=== PATIENT | female | born 1985 | race Caucasian/White ===

== ENCOUNTER 2018-10-18 10:04 | Day surgery (SDC) | payer OTHER ==
[~2018-10-18] VITALS: Ht 160 cm; Wt 45.6 kg
[~2018-10-18 10:04] MED LIST: ADVOCARE; BCP'S; Cipro500 MG PO; IBUP400 PO; IRON150C PO; JINTELI 1 MG-51 EACH PO; MULVITMINE PO; ONDA4ODT MM; PARO20 PO; PARO30 PO; PROM25 PO; THERA1 EACH PO; [UNRECOGNIZED DRUG - REMARK]
--- NOTE | 2018-10-18 10:28 | NUR ---
History, Chart, Medications and Allergies reviewed before start of procedure. Patient confirms NPO status and agrees with scheduled surgery.
--- NOTE | 2018-10-18 13:44 | NUR ---
NO BLOOD ON PIEDAD PAD. PT 3 INCISIONS REMAINED INTACT. DAVON PO, GAVE 2 PAIN MEDS. ALL BELONGIGNS RETURNED. Discharge instructions reviewed with patient. Patient verbalizes understanding. Copy given to patient to take home. Patient States Post-Procedure ride home BY MOTHER. has been arranged. Discharged via wheelchair to private car for ride home.
--- NOTE | 2018-10-19 13:14 | NUR ---
10/19/18 1314 Tammy Robledo VERIFICATIONS: EDIT CHART.
== END 2018-10-18 22:44 | disposition home or self-care (01) ==
LOC: ORSCMMR 10:04 → ORD 12:00 → ORSCMMR 22:44
PROVIDERS: Obstetrics & Gynecology
PROC: 0UT74ZZ Resection of Bilateral Fallopian Tubes, Percutaneous Endoscopic Approach (ICD-10-PCS; principal; 2018-10-18 11:45)
DX: Z30.2 Encounter for sterilization (principal); R10.2 Pelvic and perineal pain; K66.0 Peritoneal adhesions (postprocedural) (postinfection); F17.210 Nicotine dependence, cigarettes, uncomplicated; Z79.899 Other long term (current) drug therapy
CPT/HCPCS: 88302; A9270-GY; J1100; J1885; J2250; J2405; J3010; J7120

== ENCOUNTER → 2022-12-26 | Outpatient (CLI) | payer OTHER ==
[2022-12-27 14:39] LABS: Candida species (DNA Probe) Negative (NEGATIVE); G. vaginalis (DNA Probe) Negative (NEGATIVE); T. vaginalis (DNA Probe) Negative (NEGATIVE)
[2022-12-29 16:11] LABS: CHLAMYDIA TRACHOMATIS, NAA Negative (Negative); HPV 16 Negative (Negative); HPV 18 Negative (Negative); HPV OTHER HR TYPES Negative (Negative)
== END ==
LOC: LAB 16:47 → LAB SHORT 16:47
PROVIDERS: Physician Assistant
DX: Z01.419 Encounter for gynecological examination (general) (routine) without abnormal findings (principal); Z11.3 Encounter for screening for infections with a predominantly sexual mode of transmission; N93.0 Postcoital and contact bleeding
CPT/HCPCS: 87480; 87491; 87510; 87591; 87624; 87660; G0145

== ENCOUNTER → 2023-06-24 | Outpatient (CLI) | payer OTHER ==
[2023-06-25 11:56] LABS: Candida species (DNA Probe) Negative (NEGATIVE); G. vaginalis (DNA Probe) Negative (NEGATIVE); T. vaginalis (DNA Probe) Positive (NEGATIVE)
[2023-06-27 10:54] LABS: APTIMA MEDIA TYPE Unisex Swab; C. TRACHOMATIS BY TMA Negative (Negative); N. GONORRHOEAE BY TMA Negative (Negative); SPECIMEN SOURCE Not Provided
== END | disposition home or self-care (01) ==
LOC: LAB 17:47 → LAB SHORT 17:47
PROVIDERS: Physician Assistant
DX: N89.8 Other specified noninflammatory disorders of vagina (principal)
CPT/HCPCS: 87480; 87491; 87510; 87591; 87660

== ENCOUNTER → 2024-11-30 | Outpatient (CLI) | payer OTHER ==
[2024-12-01 07:57] LABS: Chlamydia Trachomatis Cervix NOT DETECTED (NOT DETECT); Neisseria Gonorrhoea Cervix NOT DETECTED (NOT DETECT)
== END | disposition home or self-care (01) ==
LOC: LAB 18:15 → LAB SHORT 18:15
PROVIDERS: Family Medicine
DX: N76.0 Acute vaginitis (principal)
CPT/HCPCS: 87491; 87591